=== PATIENT | female | born 1970 | race Caucasian/White ===

== ENCOUNTER 2017-01-08 14:52 | Emergency (ER) | payer OTHER ==
[2017-01-08 16:32] VITALS: BP 120/73
== END 2017-01-08 16:35 | disposition home or self-care (01) ==
LOC: ED 14:52
DX: T23.202A Burn of second degree of left hand, unspecified site, initial encounter (principal); E11.9 Type 2 diabetes mellitus without complications; T31.0 Burns involving less than 10% of body surface; X10.0XXA Contact with hot drinks, initial encounter; Y93.89 Activity, other specified; Y99.8 Other external cause status; Y92.89 Other specified places as the place of occurrence of the external cause

== ENCOUNTER 2017-12-04 11:29 | Emergency (ER) | payer OTHER ==
[~2017-12-04] VITALS: Ht 160 cm; Wt 109.8 kg
[2017-12-04 11:42] VITALS: BP 120/77; Ht 160 cm; Wt 109.8 kg
== END 2017-12-04 13:49 | disposition home or self-care (01) ==
LOC: ED 11:29
DX: L03.012 Cellulitis of left finger (principal); E11.9 Type 2 diabetes mellitus without complications
CPT/HCPCS: J2001

== ENCOUNTER 2018-04-16 17:49 | Emergency (ER) | payer OTHER ==
[~2018-04-16] VITALS: Ht 160 cm; Wt 114.4 kg
[2018-04-16 18:09] VITALS: Ht 160 cm; Wt 114.4 kg
[2018-04-16 20:37] VITALS: BP 119/79
== END 2018-04-16 20:37 | disposition home or self-care (01) ==
LOC: ED 17:49
DX: M53.3 Sacrococcygeal disorders, not elsewhere classified (principal); E11.9 Type 2 diabetes mellitus without complications; E66.9 Obesity, unspecified
CPT/HCPCS: J1885